=== PATIENT | female | born 1970 | race Caucasian/White ===

== ENCOUNTER → 2018-08-15 | Outpatient (CLI) | payer OTHER ==
[~2018-08-15] MED LIST: CLARITIN10 M2; ENTEX; FLONASE; NORCO 5-325 TA1 EACH PO
== END ==
LOC: M.RAD 14:29
DX: M72.2 Plantar fascial fibromatosis (principal); M79.671 Pain in right foot

== ENCOUNTER → 2020-08-09 | Outpatient (CLI) | payer OTHER | LOC: M.ULTRA 11:21 | PROVIDERS: ATTEND Family Medicine | DX: M25.462 Effusion, left knee (principal) ==

== ENCOUNTER → 2021-03-03 | Outpatient (CLI) | payer OTHER | LOC: M.ULTRA 10:30 | PROVIDERS: ATTEND Family Medicine | DX: Z12.31 Encounter for screening mammogram for malignant neoplasm of breast (principal); D25.9 Leiomyoma of uterus, unspecified; N92.0 Excessive and frequent menstruation with regular cycle ==